=== PATIENT | female | born 1945 | race Caucasian/White ===

== ENCOUNTER 2016-12-08 13:46 | Emergency (ER) | payer OTHER, MEDICAID ==
[2016-12-08 13:56] VITALS: BP 172/93; PULSE 89; RESP 20; TEMP 97.5; O2SAT 93
[2016-12-08] MEDS ORDERED: TDAP ADULT 0.5 ML INJ (BOOSTRIX) IM ONE (14:54)
--- NOTE | 2016-12-08 15:01 | UCPHY ---
H & P Time Seen by Provider: 12/08/16 14:47 Patient Type: Established HPI/ROS: 71-year-old female presents complaining of pinched her arm on the oven drier tender this afternoon, she does not recall when her last tetanus shot was. Review of systems General no fever no chills no weakness HEENT no eye pain no eye discharge. No eye redness, no sore throat Respiratory no cough, no shortness of breath Cardiac no chest pain, no peripheral edema GI no abdominal pain, no diarrhea, no constipation, no nausea, no vomiting no flank pain, no hematuria, no dysuria Musculoskeletal no myalgias, no joint pain Heme no easy bruising, no easy bleeding Endo no polyuria, no polydipsia Skin no rashes, no pruritus Neuro no syncope, no dizziness, no headaches Psych is no suicidal ideation, no homicidal ideation Past Medical/Surgical History: Hypothyroidism Hyperlipidemia Social History: No alcohol, no drugs Smoking Status: Never smoked Physical Exam: Alert and oriented in no acute distress nontoxic appearance, afebrile Atraumatic normocephalic Neck no JVD Lungs clear to auscultation, no respiratory distress Heart regular rate and rhythm Extremities no cyanosis clubbing edema Right forearm with 2 small areas approximately 1 x 1 cm deep abrasions Constitutional: Initial Vital Signs Temperature (C) 36.4 C 12/08/16 13:53 Heart Rate 89 12/08/16 13:53 Respiratory Rate 20 12/08/16 13:53 Blood Pressure 172/93 H 12/08/16 13:53 O2 Sat (%) 93 12/08/16 13:53 O2 Delivery Mode Room Air Allergies/Adverse Reactions: Sulfa (Sulfonamide Antibiotics) Allergy (Intermediate, Verified 12/08/16 13:51) Penicillins Allergy (Unknown, Verified 12/08/16 13:51) Home Medications: Medication Instructions Recorded Atorvastatin Calcium [Lipitor 20 20 mg PO DAILY 06/27/11 mg] Levothyroxine 75 mcg PO 06/27/11 [Levothyroxine,Synthroid] traZODone [traZODONE 100MG (*)] 100 mg PO 06/27/11 Bentyl 10 MG (*) 08/19/16 Medical Decision Making ED Course/Re-evaluation: Patient seen and evaluated for abrasion right forearm sustained on oven drier tender. Impression Abrasion Plan Wound cleansed, bacitracin and bandaged Tetanus updated - Data Points Medications Given: Discontinued Medications Diphtheria/Tetanus/Acell Pertussis (Boostrix) 0.5 ml IM .ONCE ONE Stop: 12/08/16 14:55 Last Admin: 12/08/16 15:20 Dose: 0.5 ml Departure - Departure Disposition: Home, Routine, Self-Care Clinical Impression: Abrasion of arm, right Condition: Good Instructions: Abrasion (ED) Referrals: [place],. [Primary Care Provider] - As per Instructions - PQRS PQRS Measurement: na
== END 2016-12-08 15:25 | disposition home or self-care (01) ==
LOC: CED 13:46
DX: S50.811A Abrasion of right forearm, initial encounter (principal); W23.1XXA Caught, crushed, jammed, or pinched between stationary objects, initial encounter
CPT/HCPCS: 90471; 90715; G0463; 99214-PO

== ENCOUNTER 2017-12-22 14:34 | Emergency (ER) | payer OTHER, MEDICAID ==
[2017-12-22 14:59] VITALS: BP 130/90; PULSE 100; RESP 18; TEMP 98.2; O2SAT 93
--- NOTE | 2017-12-22 15:19 | EDPHY ---
H & P Time Seen by Provider: 12/22/17 15:05 HPI/ROS: CHIEF COMPLAINT: Skin tear History by patient HISTORY OF PRESENT ILLNESS: 72-year-old woman with multiple medical problems presents complaining of skin tear to right arm which occurred this afternoon which she scraped her arm against the corner of the sink. She denies any other pain or injury. Her last tetanus shot is unknown. REVIEW OF SYSTEMS: As in HPI, and all other systems reviewed and are negative Smoking Status: Never smoked Physical Exam: General Appearance: Alert and no distress. Obese Head: Normocephalic, atraumatic Eyes: Pupils equal and round no injection. Extraocular movements are intact. Musculoskeletal: Neck is supple and nontender. Extremities: Right arm multiple superficial less than 1 cm skin tears on dorsal aspect of forearm, radial pulse 2 +equal to the left, distal motor and sensory intact Skin: No rashes or lesions except as described above. Constitutional: Initial Vital Signs Temperature (C) 36.8 C 12/22/17 14:41 Heart Rate 100 12/22/17 14:41 Respiratory Rate 18 12/22/17 14:41 O2 Sat (%) 93 12/22/17 14:41 O2 Delivery Mode Room Air Allergies/Adverse Reactions: Sulfa (Sulfonamide Antibiotics) Allergy (Intermediate, Verified 12/22/17 14:44) Penicillins Allergy (Unknown, Verified 12/22/17 14:44) Home Medications: Medication Instructions Recorded Atorvastatin Calcium [Lipitor 20 20 mg PO DAILY 06/27/11 mg] Bentyl 10 MG (*) 08/19/16 Bp Medication 12/22/17 MDM/Departure - [facility] ED Course/Re-evaluation: 71-year-old woman presents with skin tear to right arm. On review of old records she had a tetanus booster 1 year ago. Skin tear was cleaned and dressed with Mepilex dressing. Patient has home health with visiting nurse already set up and will have the dressing changed by the nurse in 3-5 days. - Depart Disposition: Home, Routine, Self-Care Clinical Impression: Skin tear of right upper arm without complication Qualifiers: Encounter type: initial encounter Qualified Code(s): S41.111A - Laceration without foreign body of right upper arm, initial encounter Condition: Good Instructions: Skin Tear (ED) Additional Instructions: You were seen by Dr. Harriet Yanes today. Keep the dressing on for the next 3-5 days. Please have your home nurse check on the wound at that time and reapply dressing. We recommend Mepilex dressing for skin tear. Return for any worsening or new concerns. Referrals: DR JOSE CARLOS [Other] - As per Instructions
== END 2017-12-22 15:35 | disposition home or self-care (01) ==
LOC: CED 14:34
DX: S41.111A Laceration without foreign body of right upper arm, initial encounter (principal); W22.8XXA Striking against or struck by other objects, initial encounter